=== PATIENT | male | born 1955 | race Two or more races ===

== ENCOUNTER 2024-01-26 15:15 | Emergency (ER) | payer OTHER ==
[~2024-01-26] VITALS: Ht 180.3 cm; Wt 79.8 kg
[2024-01-26] MEDS ORDERED: GLIPIZIDE10 MG PO (15:26)
[2024-01-26] MEDS ORDERED: AMLODIPINE-OLM1 EACH PO (15:26)
[2024-01-26] MEDS ORDERED: KETOROLAC TROMETHAMINE 60 MG VIAL IM ONE (18:00)
[2024-01-26] MEDS ORDERED: ORPHENADRINE CITRATE 30 MG/ML AMPUL IM ONE (18:00)
[2024-01-26] MEDS ORDERED: LYRICA150 MG PO (19:56)
== END 2024-01-26 20:55 | disposition home or self-care (01) ==
LOC: ER 15:16
DX: M79.604 Pain in right leg (principal); I10 Essential (primary) hypertension; E11.9 Type 2 diabetes mellitus without complications
CPT/HCPCS: 96372; 99282; J1885; J2360